=== PATIENT | female | born 1935 | race Caucasian/White ===

== ENCOUNTER 2020-01-15 10:16 | Outpatient (CLI) | payer MEDICARE, OTHER, SELFPAY ==
--- NOTE | 2020-01-15 10:15 | US_ITS ---
WS: [id number] RENAL ULTRASOUND REASON FOR EXAM: renal lesion TECHNIQUE: Grayscale and Doppler ultrasound examination of the kidneys. FINDINGS: Right kidney: Right kidney measures 7.0 cm x 4.2 cm x 3.1 cm. Cortex measures 0.93 cm a cyst measured 1.21 x 0.86 x 0.88 cm. Left kidney: Left kidney measures 9.2 cm x 4.5 cm x 5.1 cm. A cyst is noted in the left kidney measur ed 1.59 x 1.24 x 1.47 cm additional cyst measures 0.91 x 5.8 5.88 cm. The urinary bladder bladder is somewhat contracted and mildly thickened wall. US/US renal BI* [id number] IMPRESSION: Bilateral benign renal cysts. Small right kidney in regards to the left suggesting atrophic pyelonephritis.
== END 2020-01-15 10:17 | disposition home or self-care (01) ==
LOC: US 10:16
PROVIDERS: Family Provider Family Medicine; PCP Family Medicine; Visit Provider Urology
DX: N28.9 Disorder of kidney and ureter, unspecified (principal); Q61.02 Congenital multiple renal cysts
CPT/HCPCS: 76770; 81001